=== PATIENT | female | born 1985 | race Caucasian/White ===

== ENCOUNTER 2025-03-01 10:49 | Emergency (ER) | payer OTHER, SELFPAY ==
[2025-03-01 10:50] VITALS: BP 156/90; PULSE 109; RESP 16; TEMP 36.6; O2SAT 100; BMI 21.9
--- NOTE | 2025-03-01 11:17 | EX.ED.DYSGE1 ---
HPI History of Present Illness Chief Complaint: General Illness Informant: patient and spouse/S.O. Narrative Narrative: 39-year-old female presenting to the emergency room with general illness. Patient lives in [place] and traveled with her spouse to the area to visit. She states that today she went to breakfast and was generally feeling unwell that she may be ready to vomit. She went to the car and rested when shopping but the symptoms got worse and then she began to feel tingling in her hands and feet began to feel some palpitations and generally unwell and decided to come to emergency. Patient notes that she has been very healthy her adult life. However last [place] she began to experience headache. She had a variety of symptoms and was seeing her primary care doctor for this. Workup included blood work MRI of the brain CT imaging of the neck. She did ED visit earlier this year which is uncommon for her. She takes Vyvanse for ADHD has not taken it for the past 3 to 4 days as she was wondering if she should go off of it which she has done in the past without any symptomology. Patient is on control patch. Menstrual cycles have been regular. She states that she is feeling better than what she was before but still feels anxious. She states that anxiety does run in her family with her mom and her sister she has never been diagnosed to. She does wonder if she had a panic attack today. [facility] Medical History (Updated 03/01/25 @ 13:[address] Pierre Boyce, ) ADHD Allergy/AdvReac Type Severity Reaction Status Date / Time No Known Allergies Allergy Verified 03/01/25 10:55 Social History household members: spouse housing: house Smoking Status: Never smoker [facility] ED Constitutional Constitutional ED: Denies chills or weight loss Eyes Eyes: Denies change in vision or diplopia ENT ENT ED: Denies ear pain, rhinorrhea or sore throat Cardiovascular Cardiovascular: Reports palpitations and racing heartbeat; Denies chest pain or orthopnea Respiratory/Chest Respiratory/Chest: Denies cough, dyspnea or orthopnea Gastrointestinal Gastrointestinal: Reports nausea; Denies abdominal pain, diarrhea or vomiting Genitourinary Genitourinary ED: Denies dysuria, hematuria or urinary frequency Musculoskeletal Musculoskeletal: Denies arthralgias or myalgias Integumentary Denies abscess or rash Neurologic Neurologic: Reports headache(s) and paresthesias; Denies weakness Psychiatric Psychiatric: Reports anxiety; Denies depression, suicidal ideation or suicidal thoughts Endocrine Endocrinology: Denies polydipsia, polyphagia or polyuria Allergic/Immunologic Allergic/Immunologic ED: Denies mouth swelling, tongue swelling or urticaria EXAM Physical Exam Const Vital Signs: 03/01/25 10:50 03/01/25 11:21 03/01/25 12:50 Temperature 98 F Temperature Source Temporal Pulse Rate 109 H 70 Respiratory Rate 16 Respiratory Effort Normal Non-Labored Respiratory Pattern Normal Blood Pressure 156/90 H 122/68 H Blood Pressure Mean 112 86 Pulse Ox 100 100 Oxygen Delivery Method Room Air 03/01/25 13:10 Temperature 98.3 F Temperature Source Pulse Rate 70 Respiratory Rate 16 Respiratory Effort Respiratory Pattern Blood Pressure 122/68 H Blood Pressure Mean 86 Pulse Ox 100 Oxygen Delivery Method Positive well nourished and well developed General Appearance ED: well developed and NAD HEENT Reports normocephalic, head/scalp atraumatic and moist mucous membranes Eyes PERRL and EOMs intact bilaterally Neck no lymphadenopathy, supple and no JVD Resp normal respiratory effort and clear to auscultation bilaterally Cardio regular rate, regular rhythm and no murmurs GI normal to inspection, nondistended, normoactive bowel sounds and non-tender Palpation: soft Back/Spine no CVA tenderness and normal ROM Extremity normal to inspection General Extremety ED: Negative for edema General Extremity: Negative for edema Neuro oriented x3 and CN's II-XII intact bilaterally Sensorium / Orientation: alert Motor Exam: strength 5/5 throughout Psych mental status grossly normal Mood & Affect: anxious; Negative for depressed or tearful Skin no rashes or lesions noted and no wounds MDM MDM MDM Narrative Medical decision making narrative: Differential diagnosis includes but not limited to vasovagal near syncope dehydration electrolyte abnormalities medication withdrawal thyroid abnormalities Basic blood work including CBC CMP TSH test essentially negative. Glucose noted to be 104. She is in normal sinus rhythm on the monitor. I do not find any focal findings on examination. I think the patient can be discharged home. Would encourage PCP follow-up. I do feel that there is a high likelihood of anxiety. Patient was encouraged that if she experiences any concerning symptoms to return to emergency while she is in town. History & Record Review Discussion w/independent historian: Patient and Significant other Lab Data Attestation: I reviewed the patient's lab results. Labs: Laboratory Results - last 24 hr 03/01/25 11:19 WBC 7.9 RBC 4.78 Hgb 14.0 Hct 39.5 MCV 82.6 MCH 29.3 MCHC 35.4 RDW Std Deviation 38.1 RDW Coeff of Josette 12.6 Plt Count 253 MPV 9.1 Immature Gran % (Auto) 0.400 Neut % (Auto) 74.5 H Lymph % (Auto) 19.6 Lea % (Auto) 4.5 Eos % (Auto) 0.5 Baso % (Auto) 0.5 Absolute Neuts (auto) 5.9 Absolute Lymphs (auto) 1.54 Nucleated RBC % 0 Sodium 138 Potassium 3.7 Chloride 105 Carbon Dioxide 23.3 Anion Gap 9 BUN 8 Creatinine 0.62 L Estim Creat Clear Calc 103.11 Est GFR (MDRD) Non-Af 115 BUN/Creatinine Ratio 13.6 Glucose 104 H Calcium 9.2 Total Bilirubin 0.26 AST 18 ALT 10 Alkaline Phosphatase 53 Total Protein 6.8 Albumin 4.0 Globulin 2.8 Albumin/Globulin Ratio 1.5 TSH 1.540 Serum , Qual NEGATIVE Discharge Plan Triage Chief Complaint: General Illness ED Provider: Pierre Boyce Dx/Rx/DC Orders Clinical Impression: Nausea, Palpitations Primary Care Provider: Ann-Marie Antoine MD Referrals: [facility] Doctor,Out of [Non-Staff, Medical] Activity Restrictions/Additional Instructions: I would recommend calling your family doctor today to arrange follow-up when you return home. If any point you have return of symptoms or feeling worse please return to emergency Print Language: Kazakh Disposition Disposition: Home, Self Care Discharge Date/Time: 03/01/25 13:14
[2025-03-01 11:25] LABS: Hematocrit 39.5 % (37-47); Hemoglobin 14.0 g/dL (12.0-15.0); Immature Granulocytes Count 0.030 X10^3/uL (0.0-0.0); Mean Corp Hgb Conc 35.4 g/dL (32-36); Mean Corpuscular Volume 82.6 fL (81-99); Mean Platelet Vol. 9.1 fl (6.2-12.0); NRBC Flagged by Analyzer 0 % (0-5); Platelet Count 253 K/mm3 (150-450); RBC Distribution Width CV 12.6 % (11.6-14.6); RBC Distribution Width SD 38.1 fl (35.1-43.9); Red Blood Count 4.78 M/mm3 (4.2-5.4); White Blood Count 7.9 K/mm3 (4.4-11.0)
[2025-03-01 11:40] LABS: Internal QC Validated? YES +Cl - CLEAR BKGD; Pregnancy, Serum, hCG Quali. NEGATIVE Negative; Record Kit Lot#, Serum Preg. 980607
[2025-03-01 12:31] LABS: AST(SGOT) 18 U/L (<=31); Alanine Aminotransfer ALT/SGPT 10 U/L (<=34); Albumin, Serum 4.0 g/dL (3.5-5.0); Alkaline Phosphatase 53 U/L (35-104); Anion Gap 9 (5-15); BUN 8 mg/dL (4-19); BUN/Creat Ratio 13.6 RATIO (10-20); Calcium,Total 9.2 mg/dL (7.6-11.0); Carbon Dioxide 23.3 mmol/L (21.0-32.0); Chloride 105 mmol/L (98-108); Estimated Creatinine Clearance 103.11 ml/min (50-250); Globulin 2.8 g/dL (2.2-4.2); Glucose 104 mg/dL (70-99); Potassium 3.7 mmol/L (3.3-5.1)
[2025-03-01 12:50] VITALS: BP 122/68; PULSE 70; O2SAT 100
[2025-03-01 13:10] VITALS: BP 122/68; PULSE 70; RESP 16; TEMP 36.8; O2SAT 100
== END 2025-03-01 13:14 | disposition home or self-care (01) ==
PROVIDERS: Emergency Provider Emergency Medicine; Visit Provider Emergency Medicine
DX: R11.0 Nausea (principal); R00.2 Palpitations; R20.2 Paresthesia of skin; R51.9 Headache, unspecified
CPT/HCPCS: 80053; 84443; 84703; 85025; 99282; A4216